=== PATIENT | female | born 1970 | race Caucasian/White ===

== ENCOUNTER 2024-07-01 15:01 | Outpatient (CLI) | payer SELFPAY ==
--- NOTE | 2024-07-01 15:07 | CA_ITS ---
APPROVED REPORT EXAM: Comprehensive 2D, Doppler, and color-flow Echocardiogram [employer]: Alivia Earl CRT Ht: 5 ft 3 in Wt: 251lbs BSA: 2.13 BP: 132/86 mmHg Indications: Abnormal ECG, CAD, Hyperlipidemia, STENT, [place] 2D Dimensions LA Volume 43.40 mL LA Volume Index 20.38 mL/m2 (M/F) 16-34 M-Mode Dimensions RVDd 2.94 cm (0.9-2.6) LA Diam 3.22 cm (1.9-4.0) LVDd 4.19 cm (3.5-5.7) LVDs 2.50 cm (3.5-5.7) IVSd 1.22 cm (0.6-1.1) PWd 0.66 cm (0.6-1.1) EF (Teich) 71.40% FS 40.30% EDV (Teich) 78.10 mL TAPSE 2.79 (<1.7) ESV (Teich) 22.30 mL LV Diastology E Decel Time 217 (160-240 msec) E/A Ratio 0.90 MED A' 11.50 cm/s LAT A' 17.10 cm/s Aortic Valve AoV Peak Ralph. 213.0 (50-130 cm/s) AO Peak GR. 18.10 mmHg AO Mean GR. 10.90 (<5 mmHg) AO VTI 43.0 (18-25 cm) Mitral Valve MV A Velocity 100.0 (40-130 cm/s) E/A Ratio 0.90 Pulmonary Valve PV Peak Velocity 84.0 (50-150 cm/s) Tricuspid Valve TR P. Velocity 301.00 cm/s RAP Estimate 10.00 mmHg RVSP 46.30 mmHg Left Ventricle The left ventricle is normal size. The left ventricular systolic function is normal. The left ventricular ejection fraction is within the normal range. There is increased LV wall thickness. There is normal LV segmental wall motion. The left ventricular diastolic function is normal. LVEF is 55%. Right Ventricle The right ventricle is normal size. Right ventricle is borderline hypokinetic. Atria The left atrium size is normal. The right atrium size is normal. There is no Doppler evidence of interatrial shunt. Aortic Valve Aortic valve is mildly thickened. Trace aortic regurgitation. There is no hemodynamically significant aortic stenosis. Mitral Valve The mitral valve is normal in structure. No evidence of mitral valve stenosis. Trace mitral regurgitation. Tricuspid Valve Tricuspid valve is grossly normal in structure and function. Mild tricuspid regurgitation. RVSP is 25-30 mmHg. Pulmonic Valve The pulmonary valve is normal in structure. Trace pulmonic regurgitation. Great Vessels The aortic root is normal in size. IVC is normal in size and collapses >50% with inspiration. Pericardium There is no pericardial effusion. Other Information Study Quality: Fair Conclusion Normal biventricular systolic function. Mild TR. Electronically signed by : Myriam Curiel MD 07/06/2024 21:20:43
== END 2024-07-01 23:59 | disposition home or self-care (01) ==
LOC: RT 15:04
PROVIDERS: Visit Provider Internal Medicine
DX: I25.10 Atherosclerotic heart disease of native coronary artery without angina pectoris (principal); Z95.5 Presence of coronary angioplasty implant and graft; I25.2 Old myocardial infarction
CPT/HCPCS: 93306

== ENCOUNTER 2024-08-12 13:05 | Outpatient (CLI) | payer SELFPAY ==
[2024-08-12 13:30] LABS: Blood Urea Nitrogen 18 mg/dl (7-17); Estimated Glomerular Filt Rate 76 ml/min (>60); GFR (African American) 92 ML/MIN (>60)
--- NOTE | 2024-08-12 13:30 | CT_ITS ---
FINAL REPORT TECHNIQUE: Postcontrast axial images of the chest were performed in a CTA protocol. This study was performed with techniques to keep radiation doses as low as reasonably achievable, (ALARA). Individualized dose reduction technique using automated exposure control or adjustment of mA and/or kV according to the patient's size were employed. CLINICAL HISTORY: Thoracic aneurysm FINDINGS: The heart is normal in size. No adenopathy is identified. No pleural or pericardial effusion is identified. There is fusiform aneurysm of the mid ascending aorta measuring up to 49 mm which mildly extends to the aortic arch. Descending thoracic aorta is normal in caliber. No lung infiltrate or mass is identified. The images of the upper abdomen are unremarkable. 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 Reviewed, Interpreted and Dictated by Agapito Hawkins MD Transcribed by Doreen Escobar Authenticated and [facility]
[2024-08-12] MEDS: 0.9 % SODIUM CHLORIDE 50 ML VIAL IV (15:26)
[2024-08-12] MEDS: IOPAMIDOL-370 (76%);100ML BOTTLE 80 ML IV (15:27)
[2024-08-12] MEDS: SODIUM CHLORIDE 0.9% 10ML SYR (RAD ONLY) 10 ML IV (15:27)
== END 2024-08-12 23:59 | disposition home or self-care (01) ==
LOC: RAD 13:07
PROVIDERS: PCP Nurse Practitioner Family; Visit Provider Internal Medicine
DX: I71.21 Aneurysm of the ascending aorta, without rupture (principal)
CPT/HCPCS: 36415; 71275; 82565; 84520; Q9967